=== PATIENT | male | born 1975 | race African-American/Black ===

== ENCOUNTER 2016-08-05 09:46 | Emergency (ER) | payer SELFPAY ==
[~2016-08-05] VITALS: Ht 172.7 cm; Wt 100.0 kg
[~2016-08-05 09:46] MED LIST: NAPR-571 PO; TRAM50 PO
[2016-08-05 09:48] VITALS: BP 137/86; PULSE 88; RESP 24; O2SAT 100
[2016-08-05 10:19] VITALS: TEMP 98.5
--- NOTE | 2016-08-05 10:20 | PD ---
HPI Chief Complaint: Back/ Neck Pain or Injury Time Seen by Provider: 10:20 Travel History International Travel<30 days: No Contact w/Intl Traveler<30days: No Traveled to known affect area: No History of Present Illness HPI 41-year-old male presents to the emergency Department with complaint of right- sided low back pain that radiates down the back of his right leg since Tuesday. He said he was sick over the weekend and not feeling well so was pretty much laid out in bed. When he got up Tuesday morning to go to work he had pain in his right lower back. He has no history of back pain like this before. He denies fever, chills, nausea, vomiting. Denies encopresis, incontinence, saddle anesthesias. Denies change in urine or stool. Denies IV drug use, cancer. Reports occasional tingling sensation in his right upper thigh. Otherwise denies paresthesias, loss of sensation, decreased range of motion, decreased strength to the bilateral lower extremities. Ambulatory with a guarded gait. Pain is aggravated by movement and palpation. Pain is decreased when he elevates his right leg. Has tried taking Tylenol with minimal relief. No known allergies. Denies significant past medical history. No other modifying factors or associated signs or symptoms. PFSH Past Medical History Diminished Hearing: No Gastrointestinal Disorders: Yes (LIVER DISORDER- NOT FULLY EVALUATED OR DIAGNOSED) Musculoskeletal: Yes (CHRONIC LOWER BACK PAIN) Social History Alcohol Use: Yes (OCCASIONAL-BEER) Tobacco Use: Yes (/2 PPD) Substance Use: No Allergies-Medications (Allergen,Severity, Reaction): Coded Allergies: No Known Allergies (Verified , 08/05/16) Reported Meds & Prescriptions Reported Meds & Active Scripts Active No Active Prescriptions or Reported Medications Review of Systems Except as stated in HPI: all other systems reviewed are Neg Physical Exam Narrative GENERAL: Well-nourished, well-developed male patient, in no acute distress; afebrile, nontoxic-appearing SKIN: Warm and dry. HEAD: Atraumatic. Normocephalic. EYES: Pupils equal and round. No scleral icterus. No injection or drainage. ENT: Mucosa pink and moist. Airway patent. NECK: Trachea midline. CARDIOVASCULAR: Regular rate. RESPIRATORY: No accessory muscle use. GASTROINTESTINAL: Abdomen soft, non-tender, nondistended. Positive bowel sounds. No hepato-splenomegaly, or palpable masses. No guarding. MUSCULOSKELETAL: Bilateral lower extremities supple and non-tense with 2+ pedal pulses and sensory intact; with full range of motion and 5/5 strength. 2 + DTRs bilaterally. Active dorsiflexion and extension of bilateral feet. Left straight leg raise is negative for low back pain. Right straight leg is positive for low back pain. Ambulatory with guarded gait. Sitting up in bed at 90. No obvious deformities. No clubbing. No cyanosis. No edema. BACK: No midline point tenderness on palpation of the lumbar, thoracic spine. Tenderness on palpation of right mid back musculature and iliosacral area. No obvious deformities. NEUROLOGICAL: Awake and alert. Oriented 3. No obvious cranial nerve deficits. Motor grossly within normal limits. Normal speech. Moves all extremities. 5/5 strength to all extremities. Sensory intact. PSYCHIATRIC: Appropriate mood and affect; insight and judgment normal. Data Data Last Documented VS Vital Signs Date Time Temp Pulse Resp B/P Pulse Ox O2 Delivery O2 Flow Rate FiO2 08/05/16 10:19 98.5 08/05/16 09:48 88 24 137/86 100 Room Air Orders Ketorolac Inj (Toradol Inj) (08/05/16 10:30) Orphenadrine Inj (Norflex Inj) (08/05/16 10:30) MDM Medical Decision Making Medical Screen Exam Complete: Yes Emergency Medical Condition: Yes Medical Record Reviewed: Yes Differential Diagnosis Muscle spasm, low back strain, back pain, sciatica Narrative Course 41-year-old male physical exam consistent with right-sided low back pain, muscle spasms, and right-sided sciatica. Patient is afebrile and nontoxic- appearing. He is ambulatory in the room with a guarded gait. No midline point tenderness on palpation of the lumbar or thoracic spine. Patient denies IV drug use, cancer, encopresis, incontinence, saddle anesthesias. Toradol and Norflex administered in the ER. Ibuprofen Flexeril prescribed for home. Patient verbalizes understanding and agreement with treatment plan. Patient is medically cleared and stable for discharge. Discussed reasons to return to the emergency department. Instructed patient to follow up with primary care provider. Patient agrees with treatment plan. The patients vital signs are stable and the patient is stable for outpatient follow-up and treatment. Patient discharged home, stable and in no acute distress. Diagnosis Primary Impression: Spasm of back muscles Additional Impressions: Right sided sciatica Low back pain Qualified Code: M54.41 - Acute right-sided low back pain with right-sided sciatica Referrals: Primary Care Physician Patient Instructions: Acute Low Back Pain (ED), General Instructions, Lower Back Exercises (ED), Muscle Spasm (ED), Sciatica (ED) Departure Forms: Tests/Procedures, Work Release Enter return to work date: Aug 08, 2016 Additional Instructions: Tylenol or ibuprofen as directed and as needed for pain Flexeril as prescribed and as needed for muscle spasms Heating pad and/or ice to affected area to reduce pain Avoid aggravating activities; increase activity as tolerated Follow-up with primary care provider Return to emergency department immediately with worsening of symptoms Med/Other Pt SpecificInfo: Prescription(s) given Scripts Cyclobenzaprine (Flexeril)10 Mg Tab10 Mg PO TID PRN (MUSCLE SPASM) #30 TAB Ref 0 Prov:Kesha Mayfield 08/05/16 Ibuprofen 800 Mg [id number] Mg PO Q6HR PRN (PAIN) #30 TAB Ref 0 Prov:Kesha Mayfield 08/05/16 Disposition: 01 DISCHARGE HOME Condition: Stable Kesha Mayfield Aug 05, 2016 10:20
[2016-08-05] MEDS ORDERED: KETOROLAC TROMETHAMINE 60 MG/2 ML (IM) VIAL IM ONE (10:30)
[2016-08-05] MEDS ORDERED: ORPHENADRINE INJ 60 MG/2 ML AMP IM ONE (10:30)
[2016-08-05] MEDS ORDERED: CYCL1TAB29 PO (10:31)
[2016-08-05] MEDS ORDERED: IBUP800T23 PO (10:31)
== END 2016-08-05 10:56 | disposition home or self-care (01) ==
LOC: NEPB 09:46
DX: M62.830 Muscle spasm of back (principal); M54.41 Lumbago with sciatica, right side; F17.200 Nicotine dependence, unspecified, uncomplicated; Z87.19 Personal history of other diseases of the digestive system
CPT/HCPCS: 96372; 99283; J1885; J2360

== ENCOUNTER 2016-11-24 12:38 | Emergency (ER) | payer SELFPAY ==
[~2016-11-24] VITALS: Ht 172.7 cm; Wt 102.0 kg
[~2016-11-24 12:38] MED LIST changes: +CYCL1TAB29 PO; +IBUP800T23 PO; -NAPR-571 PO; -TRAM50 PO
[2016-11-24 12:39] VITALS: BP 123/67; PULSE 78; RESP 18; TEMP 98.3; O2SAT 100
--- NOTE | 2016-11-24 12:57 | PD ---
Physical Exam Time Seen by Provider: 12:56 Narrative Pt presents to the ED for evaluation of left shoulder pain for 1 week. Denies injury or trauma. VSS. Awaiting bed placement. Data Data Last Documented VS Vital Signs Date Time Temp Pulse Resp B/P Pulse Ox O2 Delivery O2 Flow Rate FiO2 11/24/16 12:39 98.3 78 18 123/67 100 Room Air MDM Supervised Visit with TUAN: Kesha Rivero Nov 24, 2016 12:57
[2016-11-24] MEDS ORDERED: IBUP800T23 PO (13:58)
[2016-11-24] MEDS ORDERED: ROBA500T PO (13:58)
--- NOTE | 2016-11-24 13:59 | PD ---
HPI Chief Complaint: Musculoskeletal Complaint Time Seen by Provider: 13:56 Travel History International Travel<30 days: No Contact w/Intl Traveler<30days: No Traveled to known affect area: No History of Present Illness HPI 41-year-old male presents to the emergency Department with complaint of left shoulder pain 1 week. Denies injury. Says he does a lot of heavy lifting at work. Denies fever, vomiting. Denies paresthesias, loss of sensation to the affected extremity. Reports decreased range of motion of the shoulder secondary to pain. Has not taken any medications or tried any treatments to alleviate his symptoms. Pain is aggravated with movement and palpation. No known allergies. Has no other medical complaints. No other modifying factors or associated signs and symptoms. PFSH Past Medical History Diminished Hearing: No Gastrointestinal Disorders: Yes (LIVER DISORDER- NOT FULLY EVALUATED OR DIAGNOSED) Musculoskeletal: Yes (CHRONIC LOWER BACK PAIN) Social History Alcohol Use: Yes (OCCASIONAL-BEER) Tobacco Use: Yes (1/2 PPD) Substance Use: No Allergies-Medications (Allergen,Severity, Reaction): Coded Allergies: No Known Allergies (Verified , 08/05/16) Reported Meds & Prescriptions Reported Meds & Active Scripts Active Robaxin (Methocarbamol) 500 Mg Tab 500 Mg PO QID PRN Ibuprofen 800 Mg Tab 800 Mg PO Q6HR PRN Flexeril (Cyclobenzaprine HCl) 10 Mg Tab 10 Mg PO TID PRN Ibuprofen 800 Mg Tab 800 Mg PO Q6HR PRN Review of Systems Except as stated in HPI: all other systems reviewed are Neg Physical Exam Narrative GENERAL: Well-nourished, well-developed female patient, in no acute distress SKIN: Warm and dry. HEAD: Atraumatic. Normocephalic. EYES: Pupils equal and round. No scleral icterus. No injection or drainage. ENT: Mucosa pink and moist. Airway patent. NECK: Supple. Trachea midline. CARDIOVASCULAR: Regular rate and rhythm. No murmur appreciated. 3+ radial pulses. RESPIRATORY: No accessory muscle use. Clear to auscultation. Breath sounds equal bilaterally. MUSCULOSKELETAL: No obvious deformities. No clubbing. No cyanosis. No edema. Left shoulder with decreased range of motion; greater than 45 abduction; left shoulder with no obvious deformities; shoulder equel; joint stable; tenderness on palpation to the anterior aspect; 5/5 strength; no obvious deformity. Left upper extremity supple and non-tense. 2+ radial pulse and sensory intact. NEUROLOGICAL: Awake and alert. Oriented 3. No obvious cranial nerve deficits. Motor grossly within normal limits. Normal speech. PSYCHIATRIC: Appropriate mood and affect; insight and judgment normal. Data Data Last Documented VS Vital Signs Date Time Temp Pulse Resp B/P Pulse Ox O2 Delivery O2 Flow Rate FiO2 11/24/16 12:39 98.3 78 18 123/67 100 Room Air Orders Sling Cradle Arm (11/24/16 ) MDM Medical Decision Making Medical Screen Exam Complete: Yes Emergency Medical Condition: Yes Medical Record Reviewed: Yes Differential Diagnosis Shoulder sprain, ligament tear, rotator cuff injury Narrative Course 41-year-old male with left shoulder pain. Denies injury. I do not suspect fracture, dislocation, joint separation and feel imaging is not necessary at this time. The patient was provided with an arm sling for support. Instructed patient to follow up outpatient for further evaluation. Patient requesting work release note to excuse him from work today for his visit to the emergency department. Instructed patient to follow up with orthopedics. Ibuprofen and Robaxin prescribed for home. Instructed patient to follow up with primary care provider. Patient verbalizes understanding and agreement with treatment plan. Patient is medically cleared and stable for discharge. Discussed reasons to return to the emergency department. Patient agrees with treatment plan. The patients vital signs are stable and the patient is stable for outpatient follow- up and treatment. Patient discharged home, stable and in no acute distress. Diagnosis Primary Impression: Left shoulder pain Qualified Code: M25.512 - Left shoulder pain, unspecified chronicity Referrals: [facility] Orthopaedic Surgeon Primary Care Physician Patient Instructions: General Instructions, Shoulder Pain (ED) Departure Forms: Tests/Procedures, Work Release Enter return to work date: Nov 25, 2016 Additional Instructions: Tylenol or ibuprofen as needed and as directed to reduce pain and inflammation Rest, ice, and compress extremity to decrease pain and inflammation Arm sling for support; remove your arm from the arm sling frequently and perform range of motion exercises; only use the arm sling as needed Avoid aggravating activity; increase activity as tolerated Follow-up with primary care provider Follow-up with orthopedics Return to the emergency department immediately with worsening symptoms Med/Other Pt SpecificInfo: Prescription(s) given Scripts Methocarbamol (Robaxin)500 Mg [id number] Mg PO QID PRN (MUSCLE SPASM) #30 TAB Ref 0 Prov:Kesha Mayfield 11/24/16 Ibuprofen 800 Mg [id number] Mg PO Q6HR PRN (PAIN) #30 TAB Ref 0 Prov:Kesha Mayfield 11/24/16 Disposition: 01 DISCHARGE HOME Condition: Stable Kesha Mayfield Nov 24, 2016 13:59
== END 2016-11-24 14:33 | disposition home or self-care (01) ==
LOC: NEPK 12:38
DX: M25.512 Pain in left shoulder (principal); F17.210 Nicotine dependence, cigarettes, uncomplicated
CPT/HCPCS: 99283

== ENCOUNTER 2017-03-15 16:07 | Emergency (ER) | payer SELFPAY ==
[~2017-03-15] VITALS: Ht 172.7 cm; Wt 97.7 kg
[~2017-03-15 16:07] MED LIST changes: +ROBA500T PO
[2017-03-15 16:11] VITALS: BP 151/80; TEMP 97.7; O2SAT 98
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
[2017-03-15 17:13] LABS: AUTOMATED NEUTROPHIL # 16.2 TH/MM3 (1.8-7.7); BASOPHIL # 0.1 TH/MM3 (0-0.2); BASOPHIL % 0.4 % (0.0-2.0); EOSINOPHIL # 0.1 TH/MM3 (0-0.4); EOSINOPHIL % 0.7 % (0.0-4.0); HEMATOCRIT 43.8 % (39.0-51.0); HEMO FLAGS DIFF FINAL; LYMPH % 11.3 % (9.0-44.0); LYMPHOCYTE # 2.3 TH/MM3 (1.0-4.8); MEAN CELL VOLUME 84.1 FL (80.0-100.0); MEAN CORPUSCULAR HEMOGLOBIN 27.3 PG (27.0-34.0); MEAN CORPUSCULAR HGB CONC 32.5 % (32.0-36.0); MONO % 7.1 % (0.0-8.0); NEUT % 80.5 % (16.0-70.0); PLATELET COUNT 281 TH/MM3 (150-450); RED BLOOD COUNT 5.21 MIL/MM3 (4.50-5.90); RED CELL DISTRIBUTION WIDTH 14.8 % (11.6-17.2); WHITE BLOOD COUNT 20.1 TH/MM3 (4.0-11.0)
[2017-03-15] MEDS ORDERED: SODIUM CHLOR 0.9% 1000 ML INJ 1,000 ML IV ONE ×2 (17:14→17:15)
[2017-03-15] MEDS ORDERED: FAMOTIDINE 20 MG/2 ML VIAL IV PUSH SCH (17:15)
[2017-03-15] MEDS ORDERED: SODIUM CHLORIDE 0.9% FLUSH 10 ML FLUSH IVF PRN (17:15)
[2017-03-15] MEDS ORDERED: ONDANSETRON HCL 4 MG/2 ML VIAL IVP ONE (17:15)
[2017-03-15 17:22] LABS: APTT (PATIENT) 27.4 SEC (24.3-30.1); PROTHROMBIN TIME - PATIENT 10.9 SEC (9.8-11.6)
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
--- NOTE | 2017-03-15 17:27 | RADRPT ---
EXAM DATE/TIME: 03/15/2017 16:48 [facility] COMPARISON: No previous studies available for comparison. INDICATIONS : Syncope, nausea, vomiting. MEDICAL HISTORY : None. SURGICAL HISTORY : Appendectomy. ENCOUNTER: Initial ACUITY: 1 day PAIN SCORE: 0/10 LOCATION: Bilateral chest FINDINGS: A single view of the chest demonstrates the lungs to be symmetrically aerated without evidence of mas s, infiltrate or effusion. The cardiomediastinal contours are unremarkable. Osseous structures are intact. CONCLUSION: No acute cardiopulmonary process to explain current clinical symptoms. Raghu Solis MD on March 15, 2017 at 17:25 Board Certified Radiologist. This report was verified electronically.
[2017-03-15 17:42] LABS: ALT (GPT) 40 U/L (12-78); ANION GAP 5 MEQ/L (5-15); AST (GOT) 22 U/L (15-37); BICARBONATE 25.7 MEQ/L (21.0-32.0); BLOOD UREA NITROGEN 11 MG/DL (7-18); CHLORIDE 110 MEQ/L (98-107); GLOMERULAR FILTRATION RATE 95 ML/MIN (>89); POTASSIUM 3.9 MEQ/L (3.5-5.1); SODIUM (NA) 141 MEQ/L (136-145)
[2017-03-15 17:44] LABS: ALKALINE PHOSPHATASE 83 U/L (45-117); TOTAL BILIRUBIN ADULT 0.4 MG/DL (0.2-1.0)
--- NOTE | 2017-03-15 17:54 | RADRPT ---
EXAM DATE/TIME: 03/15/2017 17:41 [facility] COMPARISON: No previous studies available for comparison. INDICATIONS : Nausea, vomiting, dizziness and cephalgia. RADIATION DOSE: 48.09 CTDIvol (mGy) MEDICAL HISTORY : None SURGICAL HISTORY : Appendectomy. ENCOUNTER: Initial ACUITY: 1 day PAIN SCALE: 9/10 LOCATION: cranial TECHNIQUE: Multiple contiguous axial images were obtained of the head. Using automated exposure control and adj ustment of the mA and/or kV according to patient size, radiation dose was kept as low as reasonably a chievable to obtain optimal diagnostic quality images. DICOM format image data is available electro nically for review and comparison. FINDINGS: CEREBRUM: The ventricles are normal for age. No evidence of midline shift, mass lesion, hemorrhage or acute in farction. No extra-axial fluid collections are seen. POSTERIOR FOSSA: The cerebellum and brainstem are intact. The 4th ventricle is midline. The cerebellopontine angle i s unremarkable. EXTRACRANIAL: The visualized portion of the orbits is intact. SKULL: The calvaria is intact. No evidence of skull fracture. CONCLUSION: Negative exam. Raghu Solis MD on March 15, 2017 at 17:52 Board Certified Radiologist. This report was verified electronically.
[2017-03-15] MEDS ORDERED: KETOROLAC TROMETHAMINE 30 MG/ML (IVP) VIAL IV PUSH ONE (18:00)
[2017-03-15] MEDS ORDERED: DEXAMETHASONE SOD PHOS 20 MG/5 ML VIAL IV PUSH ONE (18:00)
[2017-03-15 18:41] VITALS: BP 118/73; PULSE 70; RESP 16; O2SAT 97
[2017-03-15] MEDS ORDERED: REGL10TA5 PO (20:38)
--- NOTE | 2017-03-15 21:44 | EKG ---
Date Performed: 03/15/2017 Time Performed: 17:00:20 PTAGE: 42 years EKG: Sinus rhythm NORMAL ECG PREVIOUS TRACING : 11/07/2010 22.23 Compared to prior tracing no significant change DOCTOR: Norma Esparza Interpretating Date/Time 03/15/2017 21:43:57
== END 2017-03-15 20:58 | disposition home or self-care (01) ==
LOC: NEPD 16:07
DX: R42 Dizziness and giddiness (principal); R11.2 Nausea with vomiting, unspecified; R53.1 Weakness
CPT/HCPCS: 70450; 71010; 80053; 83605; 83690; 85025; 85610; 85730; 93005; 96361; 96374; 96375; 99285; J1100; J1885; J2405; J7030

== ENCOUNTER 2017-05-18 16:30 | Emergency (ER) | payer OTHER ==
[~2017-05-18 16:30] MED LIST changes: -CYCL1TAB29 PO; -IBUP800T23 PO; +REGL10TA5 PO; -ROBA500T PO
[2017-05-18 16:32] VITALS: BP 150/80; PULSE 74; RESP 18; TEMP 98.6; O2SAT 98
--- NOTE | 2017-05-18 17:39 | PD ---
HPI Chief Complaint: Back/ Neck Pain or Injury Time Seen by Provider: 17:25 Travel History International Travel<30 days: No Contact w/Intl Traveler<30days: No Traveled to known affect area: No History of Present Illness HPI Patient comes in complaining of low to mid back pain that began 3 days ago. Patient states her sleep on his mother's couch when he woke up in the morning he had "excruciating back pain". Patient reports he's been taking Tylenol, ibuprofen, and Macrobid for the pain without improvement of symptoms. Patient reports he last time he took anything was last night. Pain is worse with bending forward and walking. Pain improves with lying flat. Denies any radiation of the pain. Denies any IV drug use, fevers, loss or change in bowel or bladder, numbness or tingling anywhere, or weakness. Denies any trauma. PFSH Past Medical History Diminished Hearing: No Gastrointestinal Disorders: Yes (LIVER DISORDER- NOT FULLY EVALUATED OR DIAGNOSED) Musculoskeletal: Yes (CHRONIC LOWER BACK PAIN) Influenza Vaccination: No Past Surgical History Appendectomy: Yes Social History Alcohol Use: Yes (OCCASIONAL-BEER) Tobacco Use: No (quit months ago) Substance Use: No Allergies-Medications (Allergen,Severity, Reaction): Coded Allergies: No Known Allergies (Verified , 03/15/17) Reported Meds & Prescriptions Reported Meds & Active Scripts Active Naprosyn (Naproxen) 500 Mg Tab 500 Mg PO Q12HR PRN Flexeril (Cyclobenzaprine HCl) 10 Mg Tab 10 Mg PO Q8HR PRN Reglan (Metoclopramide HCl) 10 Mg Tab 10 Mg PO TIDAC Review of Systems Except as stated in HPI: all other systems reviewed are Neg Physical Exam Narrative GENERAL: Well-developed, overly nourished, in no acute distress, and non-ill appearing. SKIN: Focused skin assessment warm and dry. HEAD: Atraumatic. Normocephalic. EYES: Pupils equal and round. EOMI. No scleral icterus. No injection or drainage. ENT: No nasal bleeding or discharge. Mucous membranes pink and moist. NECK: Trachea midline. Supple. No nuclear rigidity. CARDIOVASCULAR: Regular rate and rhythm. No murmur appreciated. RESPIRATORY: No accessory muscle use. No respiratory distress. GASTROINTESTINAL: Abdomen soft, non-tender, nondistended, and no guarding. Hepatic and splenic margins not palpable. No pulsatile mass. MUSCULOSKELETAL: No obvious deformities. No clubbing. No cyanosis. No edema. Full range of motion. No tenderness or crepitus throughout the lumbar or thoracic spine. Patient reports tenderness to palpation right lateral upper lumbar muscles. Straight leg test positive bilaterally. Pulses equal BL distal to injury. Sensation equal BL 1st web space. FROM of toes distal to injury and equal BL. NV intact distal to injury and equal BL. Dorsal pulses equal BL. NEUROLOGICAL: Awake and alert. No obvious cranial nerve deficits. Motor grossly within normal limits. Normal speech. PSYCHIATRIC: Appropriate mood and affect; insight and judgment normal. Data Data Last Documented VS Vital Signs Date Time Temp Pulse Resp B/P (MAP) Pulse Ox O2 Delivery O2 Flow Rate FiO2 05/18/17 18:24 05/18/17 16:32 98.6 74 18 98 Room Air Orders Orders Orphenadrine Inj (Norflex Inj) (05/18/17 17:45) Ketorolac Inj (Toradol Inj) (05/18/17 17:45) Acetamin-Hydrocod 325-5 Mg ([place]am 5-325 (05/18/17 17:45) Ed Discharge Order (05/18/17 18:11) [facility] Medical Decision Making Medical Screen Exam Complete: Yes Emergency Medical Condition: Yes Differential Diagnosis Fracture, strain, contusion Narrative Course The patient presented complaining of back pain. There was no history of recent fall or trauma. There was no evidence to support genitourinary etiology. There is also no evidence to suggest vascular pathology such as AAA dissection. No fevers or other evidence to suspect infectious processes, abscess, osteomyelitis etc. The patients neurological exam is normal with normal motor and sensory. There is no saddle paresthesias reported and no bowel or bladder incontinence or retention. I suspect the pain is mechanical in nature. Clinical suspicion, plan of care and management was discussed with the patient. The patient was instructed to follow up with their health care provider. The patient was also instructed to return if the pain worsened, changed, or developed weakness or bowel or bladder trouble. The patient agreed with plan. Patient in no obvious distress upon re-evaluation. Patient was asked if they wanted to speak to my attending, which the patient did not wish to do at this time. Any questions/concerns in reference to patient diagnosis/condition discussed and clarified prior to patient's discharge. Reinforced sheer importance of close follow up with patient's primary physician or primary care clinic. Instructed patient to return to ED immediately, if symptoms return/ worsen. Patient showed understanding of above instructions. Further instructions and recommendations were detailed in discharge paperwork. Patient ambulated without difficulty out of ED at discharge. Diagnosis Primary Impression: Back pain Qualified Codes: M54.9 - Dorsalgia, unspecified Referrals: [facility] Patient Instructions: Back Pain (ED), General Instructions Departure Forms: Work Release Enter return to work date: May 21, 2017 Med/Other Pt SpecificInfo: Prescription(s) given Scripts Naproxen (Naprosyn) 500 Mg Tab 500 MG PO Q12HR Y for PAIN SCALE 1 TO 10, #14 TAB 0 Refills Prov: Ariana Johnson MD 05/18/17 Cyclobenzaprine (Flexeril) 10 Mg Tab 10 MG PO Q8HR Y for MUSCLE PAIN, #15 TAB 0 Refills Prov: Ariana Johnson MD 05/18/17 Disposition: 01 DISCHARGE HOME Condition: Stable Daniel Talbot May 18, 2017 17:39
[2017-05-18] MEDS ORDERED: ORPHENADRINE INJ 60 MG/2 ML AMP IM ONE (17:45)
[2017-05-18] MEDS ORDERED: KETOROLAC TROMETHAMINE 60 MG/2 ML (IM) VIAL IM ONE (17:45)
[2017-05-18] MEDS ORDERED: ACETAMINOPHEN/HYDROcodone 325 MG/5 MG TAB PO ONE (17:45)
[2017-05-18] MEDS ORDERED: CYCL10TA PO (18:10)
[2017-05-18] MEDS ORDERED: NAPR500 PO (18:10)
== END 2017-05-18 18:30 | disposition home or self-care (01) ==
LOC: NEPK 16:30
DX: M54.9 Dorsalgia, unspecified (principal)
CPT/HCPCS: 96372; 99284; J1885; J2360